=== PATIENT | female | born 1945 | race African-American/Black ===

== ENCOUNTER 2016-02-28 18:35 | Emergency (ER) | payer OTHER ==
[~2016-02-28] VITALS: Ht 167.6 cm; Wt 103.0 kg
[~2016-02-28 18:35] MED LIST: BENZ1TAB PO; DEPA500T3 PO; DICL75 PO; HYZA100T6 PO; IBUP600T26 PO; LEVO175T2 PO; METF500 PO; ORPH100T PO; ROBA750T3 PO; SERO100T PO; SERT100 PO; TRAM50 PO
[2016-02-28 18:39] VITALS: BP 139/75; PULSE 83; RESP 16; TEMP 97.9; O2SAT 99
[2016-02-28 19:40] VITALS: BP 141/66; PULSE 82; RESP 18; O2SAT 97
--- NOTE | 2016-02-28 19:42 | PD ---
HPI Chief Complaint: Dizziness Time Seen by Provider: 19:39 Travel History International Travel<30 days: No Contact w/Intl Traveler<30days: No Traveled to known affect area: No History of Present Illness HPI The patient is a 70-year-old female that states she has some vertigo, nausea and vomiting without diarrhea intermittently since September. She got another episode of nausea and vomiting. She does feel weak and dehydrated today. She denies any chest pain or shortness of breath. She also has a complaint of vaginal discharge which she says was helped by a Medrol Dosepak last time. PFSH Past Medical History Arthritis: Yes Bipolar Disorder: Yes Cardiovascular Problems: Yes (HTN) High Cholesterol: Yes Diabetes: Yes (02/28/16 at 1000) Patient Takes Glucophage: Yes Diminished Hearing: No Genitourinary: Yes (Urinary incontinence ) Hypertension: Yes Respiratory: Yes Tetanus Vaccination: < 5 Years Influenza Vaccination: Yes : 0 Tubal Ligation: Yes Past Surgical History Appendectomy: Yes Social History Alcohol Use: No Tobacco Use: No (QUIT 2009) Substance Use: No Allergies-Medications (Allergen,Severity, Reaction): Coded Allergies: No Known Allergies (Verified , 02/28/16) Reported Meds & Prescriptions Reported Meds & Active Scripts Active Zofran (Ondansetron HCl) 4 Mg Tab 4 Mg PO Q6HR PRN Reported Synthroid (Levothyroxine Sodium) 125 Mcg Tab 125 Mcg PO DAILY Naproxen 500 Mg Tab 500 Mg PO Q6HR PRN Tramadol (Tramadol HCl) 50 Mg Tab 50 Mg PO Q6H PRN Amlodipine (Amlodipine Besylate) 5 Mg Tab 5 Mg PO DAILY Seroquel (Quetiapine Fumarate) 100 Mg Tab 100 Mg PO BID Zoloft (Sertraline HCl) 100 Mg Tab 200 Mg PO DAILY Metformin (Metformin HCl) 500 Mg Tab 500 Mg PO BIDPC With meals Hyzaar (Losartan-Hydrochlorothiazide) 100-25 Mg Tab 1 Tab PO DAILY Divalproex ER (Divalproex Sodium) 500 Mg Tab 500 Mg PO BID Benztropine (Benztropine Mesylate) 1 Mg Tab 1 Mg PO DAILY Review of Systems Except as stated in HPI: all other systems reviewed are Neg Physical Exam Narrative GENERAL: The patient is alert, oriented 3, slightly dehydrated-appearing in no apparent distress. Her vital signs are normal. SKIN: Warm and dry. HEAD: Atraumatic. Normocephalic. EYES: Pupils equal and round. No scleral icterus. No injection or drainage. ENT: No nasal bleeding or discharge. Mucous membranes pink and moist. NECK: Trachea midline. No JVD. CARDIOVASCULAR: Regular rate and rhythm. No murmur appreciated. RESPIRATORY: No accessory muscle use. Clear to auscultation. Breath sounds equal bilaterally. GASTROINTESTINAL: Abdomen soft, non-tender, nondistended. Hepatic and splenic margins not palpable. No guarding or rebound is present. MUSCULOSKELETAL: No obvious deformities. No clubbing. No cyanosis. No edema. NEUROLOGICAL: Awake and alert. No obvious cranial nerve deficits. Motor grossly within normal limits. Normal speech. PSYCHIATRIC: Appropriate mood and affect; insight and judgment normal. Data Data Last Documented VS Vital Signs Date Time Temp Pulse Resp B/P Pulse Ox O2 Delivery O2 Flow Rate FiO2 02/28/16 21:40 97.6 68 18 157/70 97 Room Air Orders Complete Blood Count With Diff (02/28/16 19:42) Basic Metabolic Panel (Bmp) (02/28/16 19:42) Creatine Kinase (Cpk) (02/28/16 19:42) Troponin I (02/28/16 19:42) Urinalysis - C+S If Indicated (02/28/16 19:42) Magnesium (Mg) (02/28/16 19:42) Sodium Chlor 0.9% 1000 Ml Inj (Ns 1000 M (02/28/16 19:45) Sodium Chlor 0.9% 1000 Ml Inj (Ns 1000 M (02/28/16 19:45) Ondansetron Inj (Zofran Inj) (02/28/16 20:45) Sodium Chlor 0.9% 1000 Ml Inj (Ns 1000 M (02/28/16 20:45) Labs Laboratory Tests Test 02/28/16 02/28/16 19:45 21:30 White Blood Count 6.0 TH/MM3 Red Blood Count 3.07 MIL/MM3 Hemoglobin 9.2 GM/DL Hematocrit 27.6 % Mean Corpuscular Volume 90.1 FL Mean Corpuscular Hemoglobin 29.9 PG Mean Corpuscular Hemoglobin 33.2 % Concent Red Cell Distribution Width 16.3 % Platelet Count 308 TH/MM3 Mean Platelet Volume 7.4 FL CBC Comment AUTO DIFF Neutrophils % (Manual) 80 % Band Neutrophils % 1 % Lymphocytes % 17 % Monocytes % 2 % Neutrophils # (Manual) 4.9 TH/MM3 Differential Comment FINAL DIFF MANUAL Platelet Estimate NORMAL Platelet Morphology Comment NORMAL Red Cell Morphology Comment NORMAL Sodium Level 137 MEQ/L Potassium Level 4.0 MEQ/L Chloride Level 100 MEQ/L Carbon Dioxide Level 30.4 MEQ/L Anion Gap 7 MEQ/L Blood Urea Nitrogen 28 MG/DL Creatinine 1.20 MG/DL Estimat Glomerular Filtration 54 ML/MIN Rate Random Glucose 175 MG/DL Calcium Level 8.7 MG/DL Magnesium Level 2.3 MG/DL Total Creatine Kinase 96 U/L Troponin I LESS THAN 0.02 NG/ML Urine Collection Type CLEAN CATCH Urine Color YELLOW Urine Turbidity CLEAR Urine pH 6.0 Urine Specific [place] 1.014 Urine Protein NEG mg/dL Urine Glucose (UA) NEG mg/dL Urine Ketones NEG mg/dL Urine Occult Blood NEG Urine Nitrite NEG Urine Bilirubin NEG Urine Leukocyte Esterase NEG Urine RBC /hpf Urine WBC 0-2 /hpf Microscopic Urinalysis Comment CULT NOT INDICATED Urine Collection Time 2130 MDM Medical Decision Making Medical Screen Exam Complete: Yes Emergency Medical Condition: Yes Medical Record Reviewed: Yes Interpretation(s) The basic metabolic profile shows a BUN of 28, creatinine 1.2, GFR 54 but is otherwise unremarkable. The CBC shows a hemoglobin of 9.2 and hematocrit of 27.6 but is otherwise unremarkable. The urinalysis is normal and culture is not indicated. Differential Diagnosis Labyrinthitis, viral syndrome, electrolyte disorder, dehydration, medication side effect Narrative Course The patient does have anemia but it is no worse than previous values of hemoglobin/hematocrit. Her nausea has improved greatly with Zofran. The patient is currently on both meclizine and Compazine and these medications could combine to make her constipated which is one of her complaints. Plan: The patient will be given a prescription for Zofran and she should follow- up with her primary care physician as scheduled. Diagnosis Primary Impression: Vertigo, labyrinthine Additional Instructions: You can continue to take the meclizine but do not take the Compazine along with it. Use Zofran instead, this may reduce your constipation. Follow-up with your primary physician as scheduled. Med/Other Pt SpecificInfo: Prescription(s) given Scripts Ondansetron (Zofran)4 Mg Tab4 Mg PO Q6HR PRN (NAUSEA OR VOMITING) #30 TAB Ref 0 Prov:Shahriar Sepulveda MD 02/28/16 Disposition: 01 DISCHARGE HOME Condition: Stable Shahriar Sepulveda MD Feb 28, 2016 19:42
[2016-02-28] MEDS ORDERED: SODIUM CHLOR 0.9% 1000 ML INJ 1,000 ML IV SCH ×2 (19:45→20:45)
[2016-02-28] MEDS ORDERED: BENZ1TAB PO (19:59)
[2016-02-28] MEDS ORDERED: HYZA100T6 PO (20:00)
[2016-02-28] MEDS ORDERED: METF500T PO (20:00)
[2016-02-28] MEDS ORDERED: DIVA500T3 PO (20:00)
[2016-02-28] MEDS ORDERED: ZOLO100T PO (20:01)
[2016-02-28 20:02] LABS: HEMATOCRIT 27.6 % (35.0-46.0); MEAN CELL VOLUME 90.1 FL (80.0-100.0); MEAN CORPUSCULAR HEMOGLOBIN 29.9 PG (27.0-34.0); MEAN CORPUSCULAR HGB CONC 33.2 % (32.0-36.0); PLATELET COUNT 308 TH/MM3 (150-450); RED BLOOD COUNT 3.07 MIL/MM3 (4.00-5.30); RED CELL DISTRIBUTION WIDTH 16.3 % (11.6-17.2)
[2016-02-28 20:05] LABS: HEMO FLAGS AUTO DIFF
[2016-02-28] MEDS ORDERED: SERO100T PO (20:06)
[2016-02-28] MEDS ORDERED: TRAM50TA PO (20:06)
[2016-02-28] MEDS ORDERED: AMLO5TAB2 PO (20:06)
[2016-02-28 20:08] LABS: CHLORIDE 100 MEQ/L (98-107); SODIUM (NA) 137 MEQ/L (136-145)
[2016-02-28] MEDS ORDERED: NAPR500T PO (20:08)
[2016-02-28] MEDS ORDERED: LEVO.125 PO (20:09)
[2016-02-28 20:11] LABS: ANION GAP 7 MEQ/L (5-15); BICARBONATE 30.4 MEQ/L (21.0-32.0); BLOOD UREA NITROGEN 28 MG/DL (7-18); MAGNESIUM 2.3 MG/DL (1.5-2.5)
[2016-02-28] MEDS: SODIUM CHLOR 0.9% 1000 ML INJ 1,000 ML IV SCH ×2 (20:11→20:15)
[2016-02-28 20:14] LABS: GLOMERULAR FILTRATION RATE 54 ML/MIN (>89)
[2016-02-28 20:22] LABS: CREATINE KINASE 96 U/L (26-192)
[2016-02-28 20:39] LABS: BANDS 1 % (0-6); NEUTROPHIL # MANUAL DIFF 4.9 TH/MM3 (1.8-7.7); POLYS (SEG NEUTROPHILS) 80 % (16-70)
[2016-02-28 20:40] VITALS: BP 145/67; PULSE 72; RESP 18; O2SAT 100
[2016-02-28 20:43] LABS: PLATELET ESTIMATE SMEAR NORMAL (NORMAL); PLATELET MORPHOLOGY NORMAL (NORMAL); SCAN/DIFF FINAL DIFF MANUAL
[2016-02-28] MEDS ORDERED: ONDANSETRON HCL 4 MG/2 ML VIAL IV ONE (20:45)
[2016-02-28 21:40] VITALS: BP 157/70; PULSE 68; RESP 18; TEMP 97.6; O2SAT 97
[2016-02-28 21:44] LABS: BLOOD, URINE NEG (NEG); GLUCOSE,URINE NEG (NEG); KETONE, URINE NEG (NEG); NITRITE,URINE NEG (NEG)
[2016-02-28 22:00] LABS: METHOD OF COLLECTION CLEAN CATCH; URINE COLOR YELLOW (YELLW/STRAW)
[2016-02-28 22:01] LABS: COMMENT (UR) CULT NOT INDICATED; CULTURE IF INDICATED CULT NOT INDICATED; WBC, URINE 0-2 /hpf (0-5)
[2016-02-28] MEDS ORDERED: ZOFR4TAB PO (22:32)
[2016-02-28 22:55] VITALS: BP 157/68; PULSE 73; RESP 20; O2SAT 96
[2016-02-28] MEDS ORDERED: MECL-62 PO (23:16)
== END 2016-02-28 23:29 | disposition home or self-care (01) ==
LOC: PHED 18:35
DX: R42 Dizziness and giddiness (principal); H83.90 Unspecified disease of inner ear, unspecified ear; R11.2 Nausea with vomiting, unspecified; N89.8 Other specified noninflammatory disorders of vagina; I10 Essential (primary) hypertension; E78.00 Pure hypercholesterolemia, unspecified; E11.9 Type 2 diabetes mellitus without complications
CPT/HCPCS: 80048; 81001; 82550; 83735; 84484; 85007; 85027; 96361; 96374; 99284; J2405; J7030